=== PATIENT | male | born 1960 | race Caucasian/White ===

== ENCOUNTER → 2016-08-31 | Outpatient (CLI) | payer OTHER ==
--- NOTE | 2016-08-31 15:58 | KCIC ---
PROCEDURE Lumbar spine MRI without contrast. HISTORY Radiculopathy. TECHNIQUE Multiplanar and multi sequence magnetic resonance imaging of the lumbar spine was performed without contrast. COMPARISON None. FINDINGS There is lumbar levoscoliosis. There is no listhesis. The vertebral bodies are normal in height. There is mild disc desiccation at the mid lumbar vertebral levels. The conus terminates at T12-L1. There is no suspicious osseous lesion. There is a small dilated nerve root sheath cyst within the right neural foramina at T11-T12, of no clinical significance. At L1-L2, there is no stenosis. At L2-L3, there is a disc bulge and anterior predominant endplate osteophytosis. There is minimal facet arthropathy. There is no stenosis. At L3-L4, there is a suspected right extra foraminal disc protrusion and annular tear superimposed on a disc bulge and anterior predominant endplate osteophytosis. There is minimal facet arthropathy. There is no stenosis. At L4-L5, there is a disc bulge and anterior predominant endplate osteophytosis. There is minimal right facet arthropathy. There is no stenosis. At L5-S1, there is mild facet arthropathy. There is no stenosis. IMPRESSION Minimal to mild multilevel degenerative change within the lumbar spine, without significant foraminal or central canal stenosis. Electronically signed by: Lainey Whitney (Aug 31, 2016 15:56:43)
== END | disposition home or self-care (01) ==
LOC: KCIC MRI 15:14
PROVIDERS: ATTEND Family Medicine
DX: M54.16 Radiculopathy, lumbar region (principal)
CPT/HCPCS: 72148

== ENCOUNTER → 2019-07-13 | Outpatient (CLI) | payer OTHER ==
--- NOTE | 2019-07-13 18:19 | KCIC ---
Three-view left shoulder radiographs 07/13/2019 CLINICAL HISTORY: Left shoulder pain. Recent injury. AP internal and external rotation and transscapular digital radiographs of the left shoulder were obtained. No fracture or dislocation of the left shoulder is seen. Mild to moderate degenerative changes are seen involving the left left glenohumeral joint and left AC joint. IMPRESSION: Degenerative changes are seen involving the left shoulder as discussed above. No fracture or dislocation is seen. Electronically signed by: Jamari Johnson MD (07/13/2019 6:17 PM) [id number]
== END | disposition home or self-care (01) ==
LOC: KCIC 15:55
PROVIDERS: ATTEND Family Medicine
DX: M19.012 Primary osteoarthritis, left shoulder (principal)
CPT/HCPCS: 73030

== ENCOUNTER → 2020-02-08 | Outpatient (CLI) | payer OTHER ==
[2020-02-09 18:11] LABS: ANA INTERP Negative (.)
[2020-02-10 05:11] LABS: COPPER LEVEL 88 ug/dL (72-166)
== END ==
LOC: ONCLAB 16:26
PROVIDERS: ATTEND Internal Medicine Hematology & Oncology
DX: D72.819 Decreased white blood cell count, unspecified (principal)
CPT/HCPCS: 36415; 82525; 86038